=== PATIENT | male | born 1975 | race Caucasian/White ===

== ENCOUNTER → 2021-07-04 | Outpatient (CLI) | payer OTHER ==
--- NOTE | 2021-07-04 10:08 | MR ---
MR right elbow HISTORY: Strain, biceps tendon tear Multiplanar multisequence imaging through the right elbow, no comparisons Patient was claustrophobic during the exam, there is extensive motion present. Biceps tendon is at le ast partially torn, displaced from its expected insertion on the proximal radius, minimal fibers are markedly attenuated, axial image 4 of series 801. There is some local edema change. Bone marrow signa l is maintained. IMPRESSION: There are some limitations the exam. Findings consistent with biceps tendon tear as descr ibed.
== END | disposition home or self-care (01) ==
LOC: RADMRIMAIN 08:32
PROVIDERS: ATTEND Orthopaedic Surgery
DX: R60.0 Localized edema (principal)